=== PATIENT | male | born 1975 | race Caucasian/White ===

== ENCOUNTER 2018-11-17 10:07 | Emergency (ER) | payer OTHER ==
[~2018-11-17] VITALS: Ht 167.6 cm; Wt 81.6 kg
[2018-11-17] MEDS ORDERED: NEOMY/BACITRA/POLYMYXIN B OINT UD PACKET TP ONE ×2 (10:30→10:41)
[2018-11-17] MEDS ORDERED: IBUPROFEN 800 MG TABLET ONE (10:41)
[2018-11-17] MEDS ORDERED: ACETAMINOPHEN ES 500 MG TABLET ONE (10:41)
[2018-11-17] MEDS ORDERED: ACETAMINOPHEN ES 500 MG TABLET PO ONE (10:45)
[2018-11-17] MEDS ORDERED: IBUPROFEN 800 MG TABLET PO ONE (10:45)
== END 2018-11-17 10:46 | disposition home or self-care (01) ==
LOC: ER 10:09
DX: S61.302A Unspecified open wound of right middle finger with damage to nail, initial encounter (principal); X58.XXXA Exposure to other specified factors, initial encounter; Y93.89 Activity, other specified; Y92.89 Other specified places as the place of occurrence of the external cause; Y99.8 Other external cause status
CPT/HCPCS: A4663; A9150